=== PATIENT | male | born 1960 | race Caucasian/White ===

== ENCOUNTER 2025-05-07 13:42 | Outpatient (CLI) | payer MEDICARE, BC, SELFPAY | END 2025-05-07 13:43 | disposition home or self-care (01) | LOC: MRI 13:47 | PROVIDERS: PCP Radiology Radiation Oncology; Visit Provider Radiology Radiation Oncology | DX: C61 Malignant neoplasm of prostate (principal) | CPT/HCPCS: 72195 ==